=== PATIENT | female | born 1935 | race Two or more races ===

== ENCOUNTER → 2017-06-06 | Outpatient (CLI) | payer OTHER ==
[~2017-06-06] MED LIST: FOLGARD TABLET1 EACH; LIPITOR20 MG; TOPROL XL25 M1
== END | disposition home or self-care (01) ==
LOC: TOM 08:47
DX: K58.0 Irritable bowel syndrome with diarrhea (principal)

== ENCOUNTER 2017-10-05 11:12 | Outpatient (CLI) | payer OTHER | END 2017-10-05 11:16 | disposition home or self-care (01) | LOC: SONOGRAMA 11:12 → MAMO-SONO 11:45 | DX: E04.2 Nontoxic multinodular goiter (principal) ==

== ENCOUNTER 2018-04-14 11:31 | Outpatient (CLI) | payer OTHER | END 2018-04-14 11:42 | disposition home or self-care (01) | LOC: MAMO-SONO 11:31 | DX: Z12.31 Encounter for screening mammogram for malignant neoplasm of breast (principal); Z87.898 Personal history of other specified conditions; N60.11 Diffuse cystic mastopathy of right breast; N60.12 Diffuse cystic mastopathy of left breast; N63.20 Unspecified lump in the left breast, unspecified quadrant; N63.10 Unspecified lump in the right breast, unspecified quadrant; M81.0 Age-related osteoporosis without current pathological fracture ==

== ENCOUNTER 2018-06-21 13:02 | Outpatient (CLI) | payer OTHER | END 2018-06-21 13:20 | disposition home or self-care (01) | LOC: SONOGRAMA 13:02 → MAMO-SONO 13:15 → SONOGRAMA 13:20 | DX: N63.10 Unspecified lump in the right breast, unspecified quadrant (principal); N63.20 Unspecified lump in the left breast, unspecified quadrant; N60.11 Diffuse cystic mastopathy of right breast; N60.12 Diffuse cystic mastopathy of left breast; M81.0 Age-related osteoporosis without current pathological fracture ==

== ENCOUNTER → 2019-06-05 | Outpatient (CLI) | payer OTHER | END | disposition home or self-care (01) | LOC: RAD 13:34 | DX: I10 Essential (primary) hypertension (principal) ==

== ENCOUNTER 2019-06-12 11:52 | Outpatient (CLI) | payer OTHER ==
[2019-06-20] MEDS ORDERED: ESCITALOPRA5 MG/5 ML (07:00)
== END 2019-06-12 14:44 | disposition home or self-care (01) ==
LOC: RAD 11:52
DX: J44.1 Chronic obstructive pulmonary disease with (acute) exacerbation (principal)

== ENCOUNTER 2019-06-23 08:07 | Emergency (ER) | payer OTHER ==
[~2019-06-23] VITALS: Ht 157.5 cm; Wt 55.8 kg
[~2019-06-23 08:07] MED LIST changes: +ESCITALOPRA5 MG/5 ML
[2019-06-23] MEDS ORDERED: TOPROL XL25 M1 PO (08:17)
[2019-06-23] MEDS ORDERED: ZETIA10 MG (08:18)
== END 2019-06-23 13:45 | disposition home or self-care (01) ==
LOC: ER 08:07
DX: K52.1 Toxic gastroenteritis and colitis (principal); T47.2X5A Adverse effect of stimulant laxatives, initial encounter; Y92.89 Other specified places as the place of occurrence of the external cause

== ENCOUNTER 2021-08-24 19:52 | Emergency (ER) | payer OTHER ==
[~2021-08-24] VITALS: Ht 152.4 cm; Wt 56.7 kg
[~2021-08-24 19:52] MED LIST changes: +TOPROL XL25 M1 PO; +ZETIA10 MG
[2021-08-25] MEDS ORDERED: ULTRACET PO (08:03)
[2021-08-25] MEDS ORDERED: ULTRA-LIGHT RO1 EACH {1, null} (08:03)
[2021-08-25] MEDS ORDERED: WHEELCHAIR (08:03)
[2021-08-25] MEDS ORDERED: DICLOFENAC POTA50 MG PO (08:03)
== END 2021-08-25 19:23 | disposition designated cancer center or children's hospital (05) ==
LOC: ER 19:52
DX: S32.592A Other specified fracture of left pubis, initial encounter for closed fracture (principal); S00.83XA Contusion of other part of head, initial encounter; W01.0XXA Fall on same level from slipping, tripping and stumbling without subsequent striking against object, initial encounter; Y93.89 Activity, other specified; Y92.018 Other place in single-family (private) house as the place of occurrence of the external cause; Z88.0 Allergy status to penicillin; I10 Essential (primary) hypertension; Z20.822 Contact with and (suspected) exposure to COVID-19; E78.5 Hyperlipidemia, unspecified; S30.0XXA Contusion of lower back and pelvis, initial encounter; S10.83XA Contusion of other specified part of neck, initial encounter

== ENCOUNTER 2021-09-18 10:06 | Outpatient (CLI) | payer OTHER ==
[~2021-09-18 10:06] MED LIST changes: +DICLOFENAC POTA50 MG PO; +ULTRA-LIGHT RO1 EACH {1, null}; +ULTRACET PO; +WHEELCHAIR
== END 2021-09-18 10:07 | disposition home or self-care (01) ==
LOC: NUCLEAR 10:06
PROVIDERS: ATTEND Internal Medicine
DX: I82.403 Acute embolism and thrombosis of unspecified deep veins of lower extremity, bilateral (principal); Z88.0 Allergy status to penicillin

== ENCOUNTER 2023-01-14 19:03 | Emergency (ER) | payer OTHER ==
[~2023-01-14] VITALS: Ht 157.5 cm; Wt 54.4 kg
[2023-01-14] MEDS ORDERED: NAPROXEN500 MG PO (21:24)
== END 2023-01-14 21:34 | disposition home or self-care (01) ==
LOC: ER 19:04
DX: S20.211A Contusion of right front wall of thorax, initial encounter (principal); W18.30XA Fall on same level, unspecified, initial encounter; Y93.89 Activity, other specified; Y92.488 Other paved roadways as the place of occurrence of the external cause; Y99.9 Unspecified external cause status; Z88.0 Allergy status to penicillin; I10 Essential (primary) hypertension